=== PATIENT | male | born 1980 | race Caucasian/White ===

== ENCOUNTER 2017-08-29 14:48 | Emergency (ER) | payer MEDICAID ==
[2017-08-29] MEDS ORDERED: KETOROLAC 60 MG/2 ML VIAL IM STA (15:41)
[2017-08-29] MEDS ORDERED: DEXAMETHASONE 10 MG/ML VIAL PO STA (15:41)
--- NOTE | 2017-08-29 15:43 | ED Physician Documentation ---
PD HPI BACK INJURY - Stated complaint Stated Complaint: LOWER BACK PX - History obtained from History obtained from: Patient, Family - History of Present Illness Location: Left, Lower Type of injury: Other (carried a large box down 3 flights of stairs.) Where injury occurred: Home Timing - onset: Today Timing - duration: Hours Timing - details: Gradual onset, Still present Quality: Pain, Spasm, Sharp, Similar to prior episodes Improved by: Rest, Immobilization Worsened by: Moving, Palpating Associated symptoms: No: Fever, Weakness, Numbness, Incontinent of urine, Unable to urinate, Hematuria, Incontinent of stool Contributing factors: No: Prior back surgery Similar symptoms before: Diagnosis (back spasms) Recently seen: Not recently seen - Additional information Additional information: 36-year-old male with history of chronic upper back spasms has moved a large box down 3 flights of stairs today. He did not have any specific pain when he did this then he went to sit down in a chair and begin to get pain in his lower back and this progressed the longer he was sitting. He is now unable to move without significant pain to his left lower back.He has a history of spasms in his upper back and he has been to physical therapy for this. Review of Systems Constitutional: denies: Fever Eyes: denies: Decreased vision Ears: denies: Ear pain Nose: denies: Congestion Throat: denies: Sore throat Cardiac: denies: Chest pain / pressure Respiratory: denies: Dyspnea, Cough GI: denies: Abdominal Pain, Nausea, Vomiting : denies: Dysuria, Frequency Skin: denies: Rash Musculoskeletal: reports: Back pain. denies: Neck pain, Extremity pain, Pain with weight bearing Neurologic: denies: Generalized weakness, Focal weakness, Numbness PD PAST MEDICAL HISTORY - Past Medical History Cardiovascular: Hypertension, High cholesterol Psych: Depression - Past Surgical History Past Surgical History: Yes HEENT: Rhinoplasty - Present Medications Home Medications: Ambulatory Orders Medication Instructions Recorded Confirmed Amoxicillin/Potassium Clav 1 each PO Q12H #10 tablet 09/02/15 08/29/17 [Augmentin 875-125 Tablet] FLUoxetine [PROzac] 30 mg PO DAILY 09/02/15 08/29/17 Lisinopril 40 mg PO DAILY 09/02/15 08/29/17 Simvastatin 20 mg PO DAILY 09/02/15 08/29/17 Cyclobenzaprine [Flexeril] 10 mg PO TID PRN #20 tablet 08/29/17 HYDROcod/ACETAM 5/325 [[place] 5/325] 1 - 2 ea PO Q6H PRN #15 tablet 08/29/17 - Allergies Allergies/Adverse Reactions: Allergies Allergy/AdvReac Type Severity Reaction Status Date / Time No Known Drug Allergies Allergy Verified 09/02/15 17:57 - Social History Does the pt smoke?: No Smoking Status: Never smoker Does the pt drink ETOH?: No Does the pt have substance abuse?: No - Immunizations Immunizations are current?: Yes - POLST Patient has POLST: No PD ED PE NORMAL - Vitals Vital signs reviewed: Yes (hyppertensive) - General General: Alert and oriented X 3, No acute distress, Well developed/nourished - HEENT HEENT: Atraumatic, PERRL, EOMI - Respiratory Respiratory: No respiratory distress - Back Back: No CVA TTP, No spinal TTP, Other (There is tenderness to the left lower lumbar paraspinous muscles ) - Derm Derm: Normal color, Warm and dry, No rash - Extremities Extremities: No deformity, No edema - Neuro Neuro: Alert and oriented X 3, restorative care technician 2-12 intact, No motor deficit, No sensory deficit, Normal speech Eye Opening: Spontaneous Motor: Obeys Commands Verbal: Oriented GCS Score: 15 - Psych Psych: Normal mood, Normal affect Results - Vitals Vitals: Vital Signs - 24 hr 08/29/17 15:06 Temperature 36.8 C Heart Rate 98 Respiratory 18 Rate Blood Pressure 149/88 H O2 Saturation 97 Oxygen O2 Source Room air Procedures - IVC sono (time) 1540 Bedside IVC sono: IVC measures (cm) (1.24), IVC collapsed c insp (cm) (complete) , Dehydration PD MEDICAL DECISION MAKING - ED course Complexity details: reviewed results, re-evaluated patient, considered differential, d/w patient, d/w family ED course: 36-year-old male with acute spasm in his lower back after a loading injury appears to have similar types of issues with spasms in his upper back and neck. He does appear dry on physical exam with dry mucous membranes and with interrogation of the inferior vena cava dehydration is confirmed. I discussed with the patient hydration especially if he is using his muscles to prevent muscle spasm. Here in the emergency department is treated with dexamethasone 10 mg orally 60 mg Tor[address] and will place him on some Vicodin and Flexeril. Departure - Departure Disposition: 01 Home, Self Care Clinical Impression: Spasm of back muscles Condition: Stable Instructions: ED Low Back Pain Injury Follow-Up: Titus Hyatt MD [Primary Care Provider] - Prescriptions: Cyclobenzaprine [Flexeril] 10 mg PO TID PRN #20 tablet PRN Reason: Spasms HYDROcod/ACETAM 5/325 [[place] 5/325] 1 - 2 ea PO Q6H PRN #15 tablet PRN Reason: Pain Comments: Today in the Emergency Department your blood pressure was elevated. This can happen from the stress of the visit itself, from a current illness or circumstance or from uncontrolled hypertension. If you take blood pressure medications take your usual mediations, have your blood pressure re-checked in an appropriate setting and follow up any elevation with your primary care doctor.
[2017-08-29 15:57] VITALS: BP 121/76
== END 2017-08-29 15:56 | disposition home or self-care (01) ==
LOC: ED 14:48
DX: M62.830 Muscle spasm of back (principal); M54.5 Low back pain; R03.0 Elevated blood-pressure reading, without diagnosis of hypertension
CPT/HCPCS: 96372; 99283

== ENCOUNTER 2018-05-24 09:20 | Emergency (ER) | payer MEDICAID ==
[2018-05-24 09:39] VITALS: BP 130/79
[2018-05-24] MEDS ORDERED: PROPARACAINE 0.5% OPHTH DROPS 15 ML EACHEYE STA (09:49)
--- NOTE | 2018-05-24 10:16 | ED Physician Documentation ---
History of Present Illness - Stated complaint Stated Complaint: EYE PAIN - Chief complaint Chief Complaint: Heent - Additonal information Additional information: hx from pt awoke with red itchy eye took allergy med rubbed eye then cornea looked ireeg no injury no contacts Review of Systems Eyes: reports: Irritation PD PAST MEDICAL HISTORY - Past Medical History Cardiovascular: Hypertension, High cholesterol Psych: Depression - Past Surgical History Past Surgical History: Yes HEENT: Rhinoplasty - Present Medications Home Medications: Ambulatory Orders Medication Instructions Recorded Confirmed Amoxicillin/Potassium Clav 1 each PO Q12H #10 tablet 09/02/15 08/29/17 [Augmentin 875-125 Tablet] FLUoxetine [PROzac] 30 mg PO DAILY 09/02/15 08/29/17 Lisinopril 40 mg PO DAILY 09/02/15 08/29/17 Simvastatin 20 mg PO DAILY 09/02/15 08/29/17 Cyclobenzaprine [Flexeril] 10 mg PO TID PRN #20 tablet 08/29/17 HYDROcod/ACETAM 5/325 [[place] 5/325] 1 - 2 ea PO Q6H PRN #15 tablet 08/29/17 Erythromycin Base [Erythromycin] 1 applic OP Q4H #1 tub 05/24/18 Olopatadine HCl [Patanol] 1 drops RIGHTEYE BID #1 bottle 05/24/18 - Allergies Allergies/Adverse Reactions: Allergies Allergy/AdvReac Type Severity Reaction Status Date / Time No Known Drug Allergies Allergy Verified 09/02/15 17:57 - Social History Does the pt smoke?: No Smoking Status: Never smoker Does the pt drink ETOH?: No Does the pt have substance abuse?: No - Immunizations Immunizations are current?: Yes - POLST Patient has POLST: No PD ED PE NORMAL - Vitals Vital signs reviewed: Yes - HEENT HEENT: PERRL, EOMI, Other (R eye ; globe soft, injected, no FB no abrasion + chemosis) Results - Vitals Vitals: Vital Signs - 24 hr 05/24/18 09:34 Temperature 36.3 C L Heart Rate 64 Respiratory 14 Rate Blood Pressure 130/79 O2 Saturation 97 Oxygen O2 Source Room air PD MEDICAL DECISION MAKING - Sepsis Event Vital Signs: Vital Signs - 24 hr 05/24/18 09:34 Temperature 36.3 C L Heart Rate 64 Respiratory 14 Rate Blood Pressure 130/79 O2 Saturation 97 Oxygen O2 Source Room air Departure - Departure Disposition: 01 Home, Self Care Clinical Impression: Allergic conjunctivitis Qualifiers: Laterality: right Qualified Code(s): H10.11 - Acute atopic conjunctivitis, right eye Chemosis Qualifiers: Laterality: right Qualified Code(s): H11.421 - Conjunctival edema, right eye Condition: Good Instructions: ED Allergic Conjunctivitis Prescriptions: Erythromycin Base [Erythromycin] 1 applic OP Q4H #1 tub Olopatadine HCl [Patanol] 1 drops RIGHTEYE BID #1 bottle Comments: Use the allergy eye drops patanol as prescribed If not better in three days add the antibiotic ointment Cool compresses will help the pain and ease the swelling Return if worse
== END 2018-05-24 09:50 | disposition home or self-care (01) ==
LOC: ED 09:20
DX: H10.11 Acute atopic conjunctivitis, right eye (principal); H11.421 Conjunctival edema, right eye; I10 Essential (primary) hypertension
CPT/HCPCS: 99283; J3490

== ENCOUNTER 2018-06-12 15:31 | Emergency (ER) | payer MEDICAID ==
[2018-06-12] MEDS ORDERED: ONDANSETRON 4 MG/2 ML VIAL IVP STA (16:45)
[2018-06-12] MEDS ORDERED: fentaNYL 100 MCG/2 ML VIAL IVP STA ×2 (16:45→18:11)
[2018-06-12] MEDS ORDERED: SODIUM CHLORIDE 0.9% 1,000 ML IV ONE (16:45)
[2018-06-12] MEDS ORDERED: IOPAMIDOL-300 100 ML VIAL ONE (16:48)
[2018-06-12 16:56] LABS: BASOPHILS # (AUTO) 0.1 10^3/uL (0.0-0.1); BASOPHILS % (AUTO) 0.6 %; EOSINOPHILS % (AUTO) 0.3 %; HGB - HEMOGLOBIN 15.7 g/dL (14.0-18.0); LYMPHOCYTES # (AUTO) 2.8 10^3/uL (1.5-3.5); LYMPHOCYTES % (AUTO) 16.7 %; MEAN CORPUSCULAR HEMOGLOBIN 31.8 pg (27.0-31.0); MEAN CORPUSCULAR HGB CONC 35.1 g/dL (32.0-36.0); MEAN CORPUSCULAR VOLUME 90.4 fL (80.0-94.0); MEAN PLATELET VOLUME 8.6 fL (7.4-11.4); MONOCYTES # (AUTO) 0.9 10^3/uL (0.0-1.0); MONOCYTES % (AUTO) 5.5 %; NEUTROPHILS # (AUTO) 12.9 10^3/uL (1.5-6.6); NEUTROPHILS % (AUTO) 76.9 %; PLT - PLATELET COUNT 272 10^3/uL (130-450); RED BLOOD COUNT 4.93 10^6/uL (4.70-6.10); RED CELL DISTRIBUTION WIDTH 13.8 % (12.0-15.0); WHITE BLOOD COUNT 16.8 x10^3/uL (4.8-10.8)
[2018-06-12 17:09] LABS: ALBUMIN 4.6 g/dL (3.2-5.5); ALBUMIN/GLOBULIN RATIO 1.6 (1.0-2.2); BILIRUBIN,TOTAL 1.6 mg/dL (0.2-1.0); CALCIUM 9.4 mg/dL (8.5-10.3); CREATININE 1.4 mg/dL (0.6-1.2); TOTAL PROTEIN 7.5 g/dL (6.7-8.2)
[2018-06-12] MEDS ORDERED: IOPAMIDOL-300 100 ML VIAL IVP ONE (17:20)
[2018-06-12 17:31] LABS: BILIRUBIN,URINE NEGATIVE (NEGATIVE); GLUCOSE, URINE (UA) NEGATIVE (NEGATIVE); KETONES,URINE (UA) NEGATIVE (NEGATIVE); LEUKOCYTE ESTERASE, URINE NEGATIVE (NEGATIVE); NITRITE,URINE NEGATIVE (NEGATIVE); OCCULT BLOOD,URINE MODERATE (NEGATIVE); PROTEIN,URINE NEGATIVE (NEGATIVE); UROBILINOGEN,URINE 0.2 (NORMAL) E.U./dL (NORMAL)
[2018-06-12 17:33] LABS: CLARITY,URINE CLEAR (CLEAR)
--- NOTE | 2018-06-12 17:35 | XRAY Report ---
Reason: left chest pain Procedure Date: 06/12/2018 Accession Number: [id number] / [id number] Procedure: XR - Chest 1 View X-Ray CPT Code: 47002 FULL RESULT: EXAM: CHEST RADIOGRAPHY EXAM DATE: 06/12/2018 05:12 PM. CLINICAL HISTORY: Left chest pain. COMPARISON: ABDOMEN/PELVIS W/ 06/12/2018 5:02 PM. TECHNIQUE: 1 view. FINDINGS: Lungs/Pleura: Hypoventilatory changes are noted at the bases. No large effusions or pneumothorax. Mediastinum: Mild cardiac enlargement. Other: None. IMPRESSION: 1. Hypoventilatory changes. 2. No acute pulmonary process. RADIA
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
[2018-06-12 17:45] LABS: BACTERIA,URINE None Seen /HPF (None Seen); SQUAMOUS EPITHELIAL CELL,UR RARE Squamous (<= Few)
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
[2018-06-12] MEDS ORDERED: LACTATED RINGERS 1,000 ML IV ONE (18:11)
[2018-06-12] MEDS ORDERED: HYDROmorphone 1 MG/ML CARPUJECT IVP STA (18:46)
[2018-06-12 19:10] VITALS: BP 129/74
== END 2018-06-12 19:05 | disposition short-term general hospital (02) ==
LOC: ED 15:31
DX: S36.039A Unspecified laceration of spleen, initial encounter (principal); V29.9XXA Motorcycle rider (driver) (passenger) injured in unspecified traffic accident, initial encounter; I95.9 Hypotension, unspecified; I10 Essential (primary) hypertension; E78.00 Pure hypercholesterolemia, unspecified
CPT/HCPCS: 36415; 71045; 71260; 74177; 80053; 81001; 83690; 84484; 85025; 86850; 86900; 86901; 93005; 96361; 96374; 96376; 99284; J1170; J7120; Q9967; 81003; 87086; 99285